=== PATIENT | female | born 1995 | race American Indian/Alaskan Native ===

== ENCOUNTER 2017-02-13 15:07 | Inpatient (IN) | payer MEDICAID ==
[2017-02-13] MEDS ORDERED: NARCAN 0.4 MG/1 ML IV PRN (16:23)
[2017-02-13] MEDS ORDERED: SUBLIMAZE IV PRN (16:23)
[2017-02-13] MEDS ORDERED: ZOFRAN IV PRN (16:23)
[2017-02-13] MEDS ORDERED: XYLOCAINE 2% INFILTRATI ONE (16:23)
[2017-02-13] MEDS ORDERED: MINERAL OIL PO PRN (16:23)
[2017-02-13] MEDS ORDERED: ePHEDrine SULFATE IV PRN ×2 (16:23→22:41)
[2017-02-13] MEDS ORDERED: BRETHINE IVP PRN (16:23)
[2017-02-13] MEDS ORDERED: STADOL IV PRN (16:23)
[2017-02-13] MEDS ORDERED: BRETHINE SUB-Q PRN (16:23)
--- NOTE | 2017-02-13 16:31 | History and Physical Report ---
History of Present Illness Date of examination: 02/13/17 Date of admission: 02/13/17 15:08 Chief complaint: Labor History of present illness: Pt is a 21yo BF EDC 02/12/17; EGA 40 1/7 weeks presents to L&D complaining of RUC's q 3-4 mins. She received late care at [facility] since 28 weeks and care has been unremarkable. records are available and GBS is Negative. Past History Past Medical History: no pertinent history Past Surgical History: no surgical history Family/Genetic History: diabetes, other (thyroid disease) Social history: no significant social history, single - Obstetrical History Expected Date of Delivery: 02/12/17 Actual Gestation: 40 Week(s) 1 Day(s) : 2 Review of Systems All systems: negative - Vital Signs Vital signs: Vital Signs Temp Pulse Resp BP Pulse Ox 98.1 F 95 H 14 107/73 82 L 02/13/17 15:29 02/13/17 15:29 02/13/17 15:29 02/13/17 15:29 02/13/17 15:29 Temp Pulse Resp BP Pulse Ox 98.1 F 88 14 107/73 98 02/13/17 15:29 02/13/17 16:27 02/13/17 15:29 02/13/17 15:29 02/13/17 16:27 - Physical Exam Breasts: Positive: deferred Cardiovascular: Regular rate Lungs: Positive: Clear to auscultation Abdomen: Positive: normal appearance Genitourinary (Female): Positive: normal external genitalia Vagina: Positive: normal moisture Uterus: Positive: enlarged Extremities: Positive: normal - Obstetrical FHR: category 1 Uterine Contraction Monitor Mode: External Cervical Dilatation: 4 Cervical Effacement Percentage: 80 station: -1 Uterine Contraction Pattern: Regular Uterine Tone Measurement Phase: Contraction Uterine Contraction Intensity: Moderate Results All other labs normal. Assessment and Plan - Patient Problems (1) 40 weeks gestation of Onset Date: 02/13/17 Current Visit: Yes Status: Acute Plan to address problem: A:: IUP @ 40 1/7 weeks in labor P: Admit to L&D for expectant vaginal delivery
[2017-02-13] MEDS ORDERED: PITOCin/NS 20 UNIT/1000ML DRIP 20 UNITS/1,000 ML BAG IV SCH (17:00)
[2017-02-13] MEDS ORDERED: PITOCin/NS 30 UNIT/500ML 30 UNITS/500 ML BAG IV SCH ×2 (17:00)
[2017-02-13] MEDS: LACTATED RINGERS 1,000 ML IV SCH ×2 (17:41→21:54)
[2017-02-13 17:57] LABS: Hematocrit 37.6 % (30.3-42.9); Hemoglobin 12.1 gm/dl (10.1-14.3); Mean Corpuscular HGB Conc 32 % (30-34); Mean Corpuscular Volume 71 fl (79-97); Platelet Count 220 K/mm3 (140-440); Red Blood Count 5.33 M/mm3 (3.65-5.03); Red Cell Distribution Width 15.1 % (13.2-15.2); White Blood Count 9.1 K/mm3 (4.5-11.0)
[2017-02-13 17:59] LABS: Mean Corpuscular Hemoglobin 23 pg (28-32)
[2017-02-13] MEDS ORDERED: NARCAN 2 MG/2 ML IV PRN (22:41)
--- NOTE | 2017-02-13 22:41 | Anesthesia Consultation ---
Anesthesia Consult and Med Hx Date of service: 02/13/17 - Airway Anesthetic Teeth Evaluation: Good ROM Head & Neck: Adequate Mental/Hyoid Distance: Adequate Mallampati Class: Class II Intubation Access Assessment: Good - Pulmonary Exam CTA: Yes - Cardiac Exam Cardiac Exam: No Murmur - Pre-Operative Health Status ASA Pre-Surgery Classification: ASA2 Proposed Anesthetic Plan: Epidural - Pulmonary Hx Asthma: No COPD: No Hx Pneumonia: No - Cardiovascular System Hx Hypertension: No - Central Nervous System Hx Seizures: No Hx Psychiatric Problems: No - Endocrine Hx Renal Disease: No Hx End Stage Renal Disease: No Hx Hypothyroidism: No Hx Hyperthyroidism: No - Hematic Hx Anemia: No Hx Sickle Cell Disease: No - Other Systems Hx Alcohol Use: No
[2017-02-13] MEDS ORDERED: fentaNYL-BUPIV 2 MCG/ML-0.125% 200 MCG/100 ML BAG EPIDURAL SCH (23:00)
--- NOTE | 2017-02-14 01:22 | Procedure Note ---
OB Delivery Note - Delivery Date of Delivery: 02/14/17 Surgeon: ADARSH AGUIAR Estimated blood loss: 300cc - Vaginal Delivery presentation: vertex Delivery position: OA Intrapartum events: none Delivery induction: none Delivery augmentation: rupture of membranes, pitocin Delivery monitor: external FHT, external uterine Route of delivery: Delivery placenta: spontaneous Delivery cord: nuchal cord (x1), 3 umbilical vessels Episiotomy: none Delivery laceration: none Anesthesia: epidural Delivery comments: delivered OA and placed on Mom's chest for [id number] bonding and delayed cord clamping. - A at 1 minute: 8 at 5 minutes: 9 Infant Gender: Female (3301gms)
[2017-02-14] MEDS ORDERED: DULCOLAX PR PRN (01:23)
[2017-02-14] MEDS ORDERED: PHENERGAN PR PRN (01:23)
[2017-02-14] MEDS ORDERED: BENADRYL PO PRN (01:23)
[2017-02-14] MEDS ORDERED: ZOFRAN IV PRN (01:23)
[2017-02-14] MEDS ORDERED: TYLENOL PO PRN (01:23)
[2017-02-14] MEDS ORDERED: MILK OF MAGNESIA PO PRN (01:23)
[2017-02-14] MEDS ORDERED: PHENERGAN PO PRN (01:23)
[2017-02-14] MEDS ORDERED: LANSINOH TP PRN (01:23)
[2017-02-14] MEDS ORDERED: TUCKS PAD TP PRN (01:23)
[2017-02-14] MEDS ORDERED: PITOCin/NS 20 UNIT/1000ML DRIP 20 UNITS/1,000 ML BAG IV SCH (02:00)
[2017-02-14] MEDS ORDERED: SODIUM CHLORIDE FLUSH SYRINGE 10 ML IV NR (02:00)
[2017-02-14] MEDS: NORCO 5/325 PO PRN ×4 (03:41→22:10)
[2017-02-14] MEDS: MOTRIN PO SCH ×4 (05:26→23:33)
[2017-02-14] MEDS: PRENATAL VITAMIN PO SCH (12:49)
[2017-02-14] MEDS: FEOSOL PO SCH ×2 (12:50→22:10)
[2017-02-14 14:15] LABS: Hematocrit 31.2 % (30.3-42.9); Hemoglobin 9.9 gm/dl (10.1-14.3)
[2017-02-14] MEDS: COLACE PO SCH (22:11)
[2017-02-15] MEDS: MOTRIN PO SCH ×4 (05:40→23:28)
[2017-02-15] MEDS ORDERED: BOOSTRIX IM ONE (06:00)
[2017-02-15] MEDS ORDERED: M-M-R II VACCINE SUB-Q ONE (06:05)
--- NOTE | 2017-02-15 07:25 | Progress Note ---
Assessment and Plan PPD# 1 s/p -Doing well P: -Continue routine care -Anticipate D/C in 24-48 hours - Patient Problems (1) (normal spontaneous vaginal delivery) Current Visit: Yes Status: Acute Subjective - Subjective Date of service: 02/15/17 Principal diagnosis: PPD# 1 Interval history: Patient doing well, no issues Patient reports: appetite normal, voiding normally, pain well controlled, flatus , ambulating normally, no dizzy ambulation, no nauseated [place]: doing well Objective - Vital Signs Latest vital signs: Vital Signs Temp Pulse Resp BP BP 02/15/17 00:15 97.8 F 93 H 110/56 02/14/17 23:33 20 02/14/17 22:10 18 02/14/17 17:14 98.3 F 85 18 101/61 02/14/17 14:40 20 02/14/17 12:05 97.5 F L 78 20 106/80 02/14/17 08:39 20 02/14/17 08:21 97.9 F 66 18 99/77 Intake and Output 02/14/17 02/14/17 02/15/17 15:59 23:59 07:59 Intake Total 960 480 240 Output Total 1600 800 Balance -640 -320 240 Intake: Oral 960 240 Intake, Free Water 240 240 Output: Urine 1600 800 Void 1600 800 Other: Total, Intake Amount 480 240 Total, Output Amount 700 800 # Voids Void 1 2 - Exam Abdomen: Present: normal appearance, soft. Absent: distention, tenderness, guarding, rigidity Uterus: Present: firm, fundal height below umbilicus Extremities: Present: normal - Labs Labs: Abnormal lab results 02/14/17 Range/Units 13:49 Hgb 9.9 L (10.1-14.3) gm/dl
--- NOTE | 2017-02-15 07:27 | Discharge Summary ---
Providers - Providers Date of Admission: 02/13/17 15:08 Date of discharge: 02/16/17 Attending physician: ADARSH AGUIAR Primary care physician: ADARSH AGUIAR Hospitalization Reason for admission: active labor, IUP at term Delivery: Episiotomy: none Laceration: none Other procedures: none complications: none Discharge diagnosis: IUP at term delivered [place] baby: female Hospital course: Uncomplicated course Condition at discharge: Good Disposition: DC-01 TO HOME OR SELFCARE - Discharge Diagnoses (1) (normal spontaneous vaginal delivery) Status: Acute Plan - Discharge Medications Prescriptions: Ibuprofen [Motrin 600 MG tab] 600 mg PO Q8H PRN #30 tablet PRN Reason: Pain Multivitamin with Iron [Multivitamins with Iron] 1 each PO DAILY #30 tablet - Provider Discharge Summary Activity: no sex for 6 weeks, no heavy lifting 4 weeks, no strenuous exercise Diet: routine Additional instructions: [] Smoking cessation referral if applicable(refer to patient education folder for contact #) [] Refer to [facility] Booklet Call your doctor immediately for: * Fever > 100.5 * Heavy vaginal bleeding ( >1 pad per hour) * Severe persistent headache * Shortness of breath * Reddened, hot, painful area to leg or breast * Drainage or odor from incision. * Keep incision clean and dry at all times and follow doctor's instructions regarding bathing/showering - Follow up plan Follow up: ADARSH AGUIAR MD [Primary Care Provider] - 6 Weeks
[2017-02-15] MEDS: NORCO 5/325 PO PRN ×3 (08:14→21:38)
--- NOTE | 2017-02-15 09:38 | Progress Note ---
Subjective Date of service: 02/15/17 Principal diagnosis: PPD# 1 Interval history: Pt doing well. No residual numbness. Objective - Constitutional Vitals: Vital Signs - 12hr 02/14/17 02/14/17 02/15/17 22:10 23:33 00:15 Temperature 97.8 F Pulse Rate 93 H Respiratory 18 20 Rate Blood Pressure 110/56 [Right] - Labs CBC & Chem 7: 02/14/17 13:49 Labs: Abnormal lab results 02/14/17 Range/Units 13:49 Hgb 9.9 L (10.1-14.3) gm/dl
[2017-02-15] MEDS: COLACE PO SCH ×2 (12:09→21:39)
[2017-02-15] MEDS: FEOSOL PO SCH ×2 (12:10→21:39)
[2017-02-15] MEDS: PRENATAL VITAMIN PO SCH (12:10)
[2017-02-16] MEDS: MOTRIN PO SCH (05:02)
[2017-02-16] MEDS: NORCO 5/325 PO PRN (08:26)
[2017-02-16 09:15] VITALS: BP 117/72
[2017-02-16] MEDS ORDERED: M-M-R II VACCINE SUB-Q ONE (10:59)
[2017-02-16] MEDS: FEOSOL PO SCH (11:04)
[2017-02-16] MEDS: PRENATAL VITAMIN PO SCH (11:04)
[2017-02-16] MEDS: COLACE PO SCH (11:05)
== END 2017-02-16 12:00 | disposition home or self-care (01) | DRG 775 ==
LOC: TRG 15:07 → LD 15:08 → OB 02-14 03:12
PROVIDERS: ADMIT Obstetrics & Gynecology; ATTEND Obstetrics & Gynecology
PROC: 10E0XZZ Delivery of Products of Conception, External Approach (ICD-10-PCS; principal; 2017-02-14)
PROC: 3E0R3BZ Introduction of Anesthetic Agent into Spinal Canal, Percutaneous Approach (ICD-10-PCS; 2017-02-14)
PROC: 00HU33Z Insertion of Infusion Device into Spinal Canal, Percutaneous Approach (ICD-10-PCS; 2017-02-14)
PROC: 3E0234Z Introduction of Serum, Toxoid and Vaccine into Muscle, Percutaneous Approach (ICD-10-PCS; 2017-02-15)
DX: O69.81X0 Labor and delivery complicated by cord around neck, without compression, not applicable or unspecified (principal); Z3A.40 40 weeks gestation of pregnancy; Z37.0 Single live birth; Z23 Encounter for immunization; Z83.3 Family history of diabetes mellitus
CPT/HCPCS: 36415; 85014; 85018; 85027; 86850; 86900; 86901; 90471; 90707; 99211; A6250; G0463; J2590; J3010; J7120